=== PATIENT | male | born 1945 | race Caucasian/White ===

== ENCOUNTER 2020-03-13 08:56 | Outpatient (NON) | payer OTHER, SELFPAY ==
[2020-03-13 21:15] LABS: SARS-CoV-2 RNA PCR Negative
== END 2020-03-13 08:57 ==
PROVIDERS: PCP Emergency Medicine; Visit Provider Emergency Medicine
DX: R05 Cough (principal); R06.02 Shortness of breath; Z20.828 Contact with and (suspected) exposure to other viral communicable diseases
CPT/HCPCS: 87635; C9803; U0003

== ENCOUNTER 2023-07-29 09:58 | Emergency (ER) | payer OTHER, SELFPAY ==
[2023-07-29] VITALS (17 sets, daily range): BP systolic 112–154; BP diastolic 71–83; PULSE 59–74; RESP 15–21; TEMP 36.6; O2SAT 92–99
--- NOTE | ~2023-07-29 | XR_ITS ---
EXAMINATION: XR chest 2V DATE: 07/29/2023 10:25 INDICATION: Rib injury. Shortness of breath. Right lateral chest pain. TECHNIQUE: PA and lateral views of the chest were obtained. COMPARISON: Chest radiograph dated 09/19/2015 FINDINGS: Mild hyperexpansion of lungs with flattening of the diaphragm and increased lucency in the upper lung zones suggestive but not diagnostic of COPD. Slight progression in a coarse reticular pattern with p eripheral predominance in the bilateral mid and lower lung zones. No pleural effusion or pneumothorax . Calcified nodule in the right lower lung zone consistent with old granulomatous disease. The cardio mediastinal silhouette is normal. Mild thoracic spondylosis. No evident rib fractures. IMPRESSION: 1. Slight progression in peripheral predominant coarse reticular pattern in the bilateral mid and low er lungs most suggestive of chronic interstitial lung disease but which in the acute setting could re present mild pulmonary edema or less likely pneumonia. 2. Appearance also suggestive but not diagnostic of COPD. Reviewed, dictated and finalized at location A. IMPRESSION: 1. Slight progression in peripheral predominant coarse reticular pattern in the bilateral mid and lower lungs most suggestive of chronic interstitial lung dis ease but which in the acute setting could represent mild pulmonary edema or les s likely pneumonia. 2. Appearance also suggestive but not diagnostic of COPD.
--- NOTE | 2023-07-29 11:35 | ECG_ITS ---
Measurements Intervals [place] Rate: 61 P: -3 WV: 173 QRS: 38 QRSD: 83 T: 28 QT: 399 QTc: 403 Interpretive Statements SINUS RHYTHM BASELINE ARTIFACT- I, II, AVR, V3 NORMAL ECG NO PREVIOUS ECG AVAILABLE FOR COMPARISON Electronically Signed On 07-29-2023 11:59:32 CDT by Mihir Colin D.O.
[2023-07-29] MEDS: IPRATROPIUM 0.5 MG/ALBUTEROL SULFATE 2.5 MG AMPUL.NEB 3 ML INHALATION (11:51)
[2023-07-29 12:13] LABS: Basophils Absolute Auto 0.1 K/mm3 (0.0-0.1); Basophils Percent Auto 0.4 % (0.2-1.2); Eosinophils Absolute Auto 0.2 K/mm3 (0-0.3); Eosinophils Percent Auto 1.6 % (0-4.4); Hemoglobin 17.3 g/dL (14.0-18.0); Immature Granulocyte Absolute 0.07 K/mm3 (0.00-0.031); Immature Granulocyte Percent A 0.5 % (0-0.5); Lymphocytes Absolute Auto 3.15 K/mm3 (0.9-3.2); Lymphocytes Percent Auto 23.5 % (18.3-44.2); Mean Corpuscular HGB Conc 33.3 g/dl (32-36); Mean Corpuscular Hemoglobin 30.9 pg (26-34); Mean Corpuscular Volume 92.9 fl (80-100); Mean Platelet Volume 9.1 fl (7.4-10.4); Monocytes Percent Auto 7.5 % (2.6-8.5); Neutrophils Absolute Auto 8.9 K/mm3 (1.3-6.7); Neutrophils Percent Auto 66.5 % (45.5-73.1); Platelet Count Result 274 k/mm3 (150-375); Red Cell Distribution Width 14.1 % (11.5-14.5); White Blood Count 13.4 K/mm3 (4.5-10.0)
[2023-07-29 12:24] LABS: Alanine Aminotransferase 59 U/L (6-50); Albumin Level 3.8 g/dL (3.5-5.1); Alkaline Phosphatase 151 U/L (38-126); Anion Gap 0 mmol/L (8-16); Aspartate Amino Transferase 41 U/L (17-59); Bilirubin,Total 0.6 mg/dL (0.2-1.3); Blood Urea Nitrogen 12 mg/dL (9-20); Calcium 9.4 mg/dL (8.4-10.2); Carbon Dioxide 32 mmol/L (22-30); Chloride 102 mmol/L (98-107); Estimated CRCL calculation 74 ml/min; Estimated Glomerular Filt Rate > 60; Glucose 94 mg/dL (65-110); Potassium 4.9 mmol/L (3.4-5.0); Sodium 134 mmol/L (137-145)
[2023-07-29 12:36] LABS: NT Pro B Type Natriuretic Pept 99 pg/mL (19.9-100); Troponin I < 0.012 ng/mL (0.000-0.034)
--- NOTE | 2023-07-29 12:56 | ED.SOB ---
HPI - SOB/Dyspnea General Chief Complaint: Shortness of Breath/Dyspnea Stated Complaint: rib pain, SOB s/p fall last week Time Seen by Provider: 07/29/23 11:02 History of Present Illness HPI Narrative: This is a 77-year-old male, with past medical history of hypertension, who presents emergency department complaining of right chest wall tenderness and cough. Patient states 3 days ago, he was repairing an antenna, when he slipped, striking the right side of his chest on the window seal. He complains of some tenderness in that area that is improved. He also complains of nonproductive cough and some shortness of breath. He has no other complaints at this time Related Data Home Medications Medication Instructions Recorded Confirmed aspirin 81 mg tablet,delayed 81 mg PO DAILY 07/10/19 03/21/23 release cholecalciferol (vitamin D3) 25 1,000 unit PO DAILY 07/10/19 03/21/23 mcg (1,000 unit) tablet kuvqsrob-toj-xbnet acid 0.4 1 tablet PO DAILY 07/10/19 03/21/23 mg-lycopene 300 mcg-lutein 250 mcg tablet (Centrum Silver) nitroglycerin 0.4 mg sublingual See Rx Instructions .Route .COMPLEX 07/10/19 03/21/23 tablet omega 1-hfu-idu-fish oil 100 1 cap PO DAILY 07/10/19 03/21/23 mg-160 mg-1,000 mg capsule (Fish Oil) vitamins A,C,U-oscw-esrnoa 4,296 1 cap PO DAILY 07/10/19 03/21/23 mcg-226 mg-90 mg capsule (PreserVision AREDS) Allergies Allergy/AdvReac Type Severity Reaction Status Date / Time No Known Allergies Allergy Verified 07/29/23 10:13 Review of Systems Review of Systems: CONSTITUTIONAL: Denies fever, chills, or sweats. CARDIOVASCULAR: Denies chest pain, palpitations, or edema. RESPIRATORY: Nonproductive cough, right-sided chest wall pain Denies dyspnea. GASTROINTESTINAL: Denies abdominal pain, nausea, vomiting, or diarrhea. GENITOURINARY: Denies dysuria or hematuria. SKIN: Denies rash or itching. MUSCULOSKELETAL: Denies back pain, joint pain, or myalgia. NEUROLOGIC: Denies headache, numbness, dizziness, or weakness. PSYCHIATRIC: Denies anxiety or depression. [facility] Past Medical History Medical History CAD (coronary artery disease) HLD (hyperlipidemia) Family History Family History Father Family history of chronic obstructive pulmonary disease, Onset Age: 69 Sibling Family history of lung cancer Social History Social History Smoking status: Former smoker Smoking end date: 05/09/14 Alcohol intake: current Current Housing: Decline to Answer Concerned About Future Housing: Decline to Answer Difficulty Paying Gas/Electric Bills: Decline to Answer Difficulty Paying for Meds: Decline to Answer Currently Unemployed: Decline to Answer Education: Decline to Answer Difficulty w/ Childcare or Family Care: Decline to Answer Exam Narrative: GENERAL: Well-developed, well-nourished, and in no acute distress. HEAD: Normocephalic, atraumatic. EYES: PERRLA and EOMI. CHEST: Bilateral lower lung field expiratory wheeze. No respiratory distress. No rales or rhonchi HEART: Regular rate and rhythm. No murmur heard. Normal peripheral pulses. ABDOMEN: Soft, nontender, nondistended, normal active bowel sounds. EXTREMITIES: Normal range of motion. No edema. SKIN: Warm, dry, no rash. NEURO: Alert and oriented x3. No focal deficit. Moving all 4 limbs spontaneously PSYCH: Normal mood and affect. Course Course Emergency Course: 12:54 - CBC demonstrates slightly overweight buckled count of 13.4 but is otherwise unremarkable. Chemistries demonstrate mild hyponatremia sodium 134 but is otherwise unremarkable. Troponin negative. BNP within normal limits. Chest x-ray demonstrates changes possibly reflecting pulmonary edema versus pneumonia. EKG not concerning for ischemia or arrhythmia. I suspect the patient's
== END 2023-07-29 13:16 | disposition home or self-care (01) ==
PROVIDERS: Emergency Provider Preventive Medicine Aerospace Medicine; PCP Emergency Medicine
DX: J18.9 Pneumonia, unspecified organism (principal); S20.211A Contusion of right front wall of thorax, initial encounter; R06.02 Shortness of breath; E78.5 Hyperlipidemia, unspecified; I25.10 Atherosclerotic heart disease of native coronary artery without angina pectoris; Z87.891 Personal history of nicotine dependence; Z79.82 Long term (current) use of aspirin; W01.198A Fall on same level from slipping, tripping and stumbling with subsequent striking against other object, initial encounter
CPT/HCPCS: 36415; 71046; 80053; 83880; 84484; 85025; 93005; 94640; 99284

== ENCOUNTER 2025-03-13 10:23 | Outpatient (CLI) | payer OTHER, SELFPAY ==
--- OUTSIDE RECORDS SUMMARY | 2007-12-25 02:01 | XMS_ITS | Continuity of Care Document ---
Author Organization [facility] Address [address] [place] [address] Phone Care Team Providers Care Debrander Name Role Phone Bonnie Isael Unavailable Unavailable Procedures Procedure Date Eye Exam, New Patient Refraction Advance Directives Directive Yes / No Effective Date File Name No Information Encounters Encounter Description Practice Location Reason(s) For Visit Diagnoses Date Provider Providers Copied on Encounter [facility], [address], [place], [place], [id number], tel:[phone] [facility] No Information [phone]. [address], [place], [address], [place]. tel:[phone] Family History Family Member Type Diagnosis Age At Onset No Information Payers Payer name Insurance type Covered libertarian ID Authoriza tion(s) No Information Social History Type Description Quantity Date Captured Comments Sex Male Smoking Status No Information Chief Complaint And Reason For Visit No Information Reason For Referral Reason For Referral No Information History Of Present Illness Encounter Date Complaint History Of Prese nt Illness No Information Functional Status Date Functional Assessmen t No Information Instructions Date Instruction Additional Infor mation No Information Assessments Type Assessment Date No Information Patient Care Teams Name Effective Dates (start - stop) Status Members No Information
--- NOTE | 2025-03-13 10:28 | EST_ITS ---
Patient Info Name: Hiram Roberts Age: 79 years : 1945 Gender: Male Ht: 72 in Wt: 196 lbs BSA: 2.14 m2 HR: 72 bpm BP: 139 / 79 mmHg Exam Date: 03/13/2025 10:28 AM Patient Status: O Admit Date: 03/13/2025 Exam Type: CA stress test treadmill A treadmill exercise stress test was performed. Staff Attending Provider: Xavier Chowdhury MD Exercise Technologist: Viry Maciel Exercise Physician: Mihir Colin DO Appropriate Use Criteria Target HR not met due to patient unable to hold bladder during testing. Summary 1. 1. Negative Manuel exercise stress test for ischemic ST changes by ECG criteria. However, only achieved 77% MPHR for age group which reduces sensitivity of the test. 2. 2. Reduced functional capacity, achieving 4.7 METs of workload. 3. 3. Appropriate HR response to exercise. 4. 4. Appropriate HR recovery at 1 minute post exercise. 5. 5. No imaging with stress testing. 6. 6. Patient informed of the above results. Protocol: Manuel Stress ECG Details Stage: REST Duration (min): 0 min : 56 sec Speed (mph): 0.0 Grade (%): 0 HR (bpm): 73 SBP (mmHg): 139 DBP (mmHg): 79 METS: --- Stage: REST Duration (min): 7 min : 1 sec Speed (mph): 0.0 Grade (%): 0 HR (bpm): 80 SBP (mmHg): 139 DBP (mmHg): 79 METS: --- Stage: STAGE 1 Duration (min): 1 min : 0 sec Speed (mph): 1.7 Grade (%): 10 HR (bpm): 93 SBP (mmHg): 139 DBP (mmHg): 79 METS: --- Stage: STAGE 1 Duration (min): 2 min : 0 sec Speed (mph): 1.7 Grade (%): 10 HR (bpm): 102 SBP (mmHg): 139 DBP (mmHg): 79 METS: --- Stage: STAGE 1 Duration (min): 2 min : 27 sec Speed (mph): 1.7 Grade (%): 10 HR (bpm): 107 SBP (mmHg): 139 DBP (mmHg): 79 METS: --- Stage: RECOVERY Duration (min): 0 min : 32 sec Speed (mph): 0.0 Grade (%): 0 HR (bpm): 105 SBP (mmHg): 184 DBP (mmHg): 92 METS: --- Stage: RECOVERY Duration (min): 1 min : 32 sec Speed (mph): 0.0 Grade (%): 0 HR (bpm): 106 SBP (mmHg): 184 DBP (mmHg): 92 METS: --- Stage: RECOVERY Duration (min): 2 min : 32 sec Speed (mph): 0.0 Grade (%): 0 HR (bpm): 106 SBP (mmHg): 184 DBP (mmHg): 92 METS: --- Stage: RECOVERY Duration (min): 3 min : 32 sec Speed (mph): 0.0 Grade (%): 0 HR (bpm): 99 SBP (mmHg): 184 DBP (mmHg): 92 METS: --- Stage: RECOVERY Duration (min): 4 min : 32 sec Speed (mph): 0.0 Grade (%): 0 HR (bpm): 101 SBP (mmHg): 184 DBP (mmHg): 92 METS: --- Stage: RECOVERY Duration (min): 5 min : 32 sec Speed (mph): 0.0 Grade (%): 0 HR (bpm): 97 SBP (mmHg): 184 DBP (mmHg): 92 METS: --- Stage: RECOVERY Duration (min): 6 min : 32 sec Speed (mph): 0.0 Grade (%): 0 HR (bpm): 91 SBP (mmHg): 160 DBP (mmHg): 84 METS: --- Stage: RECOVERY Duration (min): 7 min : 32 sec Speed (mph): 0.0 Grade (%): 0 HR (bpm): 87 SBP (mmHg): 160 DBP (mmHg): 84 METS: --- Stage: RECOVERY Duration (min): 8 min : 32 sec Speed (mph): 0.0 Grade (%): 0 HR (bpm): 85 SBP (mmHg): 160 DBP (mmHg): 84 METS: --- Stage: RECOVERY Duration (min): 9 min : 2 sec Speed (mph): 0.0 Grade (%): 0 HR (bpm): 84 SBP (mmHg): 150 DBP (mmHg): 84 METS: --- Rest HR: 80 bpm Peak HR: 109 bpm Rest Sys BP: 139 mmHg Peak Sys BP: 184 mmHg Max Pred HR: 141 bpm % Max Pred HR: 77 % Target HR: 120 bpm Max RPP: 20,056 bpm*mmHg Villalta Score: -8 Termination Reason: Maximal effort/unable to continue Cardiac Symptoms: Shortness of breath, Had to urinate Max ST Seg Deviation: -2.00 mm Total Time: 2 min : 27 sec Rest Braxton BP: 79 mmHg Peak Braxton BP: 92 mmHg Angina Score: None Total METS: 4.7 Resting ECG Sinus rhythm. Stress ECG No ST changes. Arrhythmias None. Report Signatures
--- OUTSIDE RECORDS SUMMARY | 2025-03-14 10:07 | XMS_ITS | Clinical Summary ---
Author Organization [email or web address] Address [address] [place] [address] Care Team Providers Care Manager Photo Name Role Phone Xavier Cobb MD Primary Care Provider [phone] Source Comments [email or web address],non-owned Affiliates and Associated Physician Practices is amultiple site organization consisting of ambulatory clinics and hospital sitesin [place], [place], [place] and [place]. This disclosure is being madepursuant to the Care Everywhere program and may not contain all information available regarding this patient. 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 (08/08/2017): Pop an s/p right leg bypass Family History Medical History Relation Name Comments CAD (Coronary Artery Disease) Father Status: None Known Mother Status: Alive Relation Name Status Comments Father Mother Social History Tobacco Use Types Packs/Day Years Used Date Smoking Tobacco: Every Day Smokeless Tobacco: Never Alcohol Use Standard Drinks/Week Comments No 0 (1 standard drink = 0.6 oz pur e alcohol) Sex and Gender Information Value Date Recorded Sex Assigned at Not on file Legal Sex Male 5:47 PM UX DESIGN MANAGER Gender Identity Not on file Sexual Orientation Not on file Last Filed Vital Signs Vital Sign Reading Time Taken Comments Blood Pressure 130/85 05/20/2015 2:28 PM UX DESIGN MANAGER Pulse 72 05/20/2015 2:28 PM UX DESIGN MANAGER Temperature 36.1 C (97 F) 05/20/2015 2:28 PM UX DESIGN MANAGER Respiratory Rate - - Oxygen Saturation - - Inhaled Oxygen Concentration - - Weight 124.1 kg (273 lb 8 oz) 05/20/2015 2:28 PM UX DESIGN MANAGER Height 182.9 cm (6') 05/20/2015 2:28 PM UX DESIGN MANAGER Body Mass Index 37.09 05/20/2015 2:28 PM UX DESIGN MANAGER Plan of Treatment Health Maintenance Due Date Last Done Comments DTAP/TDAP/TD VACCINES (1 - Tdap) 1964 PNEUMOCOCCAL VACCINE 50+ (1 of 1 - PCV) 11/20/1995 ZOSTER VACCINE (1 of 2) 11/20/1995 Respiratory Syncytial Virus (RSV) Vaccine Pt: or over 60 yrs (1 - 1-dose 75+ series) 2020 DEPRESSION SCREENING 05/09/2024 COVID-19 VACCINE (1 - 2023-2 5 season) 2025 INFLUENZA VACCINE (#1) 2025 HEPATITIS B VACCINE Aged Out No longe r eligible based on patient's age to complete this topic HIB VACCINE Aged Out No longer eligi ble based on patient's age to complete this topic HPV VACCINE Aged Out No longer eligi ble based on patient's age to complete this topic MENINGOCOCCAL (Group B) VACC INE SHARED DECISION-MAKING Aged Out No longer eligibl e based on patient's age to complete this topic MENINGOCOCCAL GROUPS A/C/Y/W VACCINE Aged Out No longer eligible b ased on patient's age to complete this topic Care Teams Manager Photo Relationship Specialty Start Date End Date Xavier Cobb MD PCP - General 10/15/10
== END 2025-03-13 10:24 | disposition home or self-care (01) ==
PROVIDERS: PCP Emergency Medicine; Visit Provider Emergency Medicine
DX: R06.02 Shortness of breath (principal)
CPT/HCPCS: 93017